=== PATIENT | female | born 1970 | race Caucasian/White ===

== ENCOUNTER → 2017-12-15 | Outpatient (CLI) | payer OTHER ==
[2014-07-07 13:38] VITALS: BMI 30.1
[~2017-12-15] MED LIST: ASPI-702 PO; Acetaminophen PO; BISM525O75 PO; Benzocaine 60 ML TP; DOCU240C67 PO; GUAI-545 PO; Ibuprofen PO; Lanolin TP; TUCKS TOP
--- NOTE | 2017-12-15 15:09 | RADIOLOGY IMAGING REPORT ---
FACILITY: [facility] - [place] PATIENT NAME: MILVIA JASON : [id number] MR: [id number] V: [id number] EXAM DATE: ORDERING PHYSICIAN: LUZ MARIA DIOR TECHNOLOGIST: Giovana Rick PROCEDURE:BILATERAL DIGITAL SCREENING MAMMOGRAM WITH CAD ASSISTED INTERPRETATION & 3D TOMOSYNTHESIS COMPARISON:Prior mammograms 11/05/16, 11/02/15, 08/02/12. INDICATIONS:SCREENING FINDINGS: Moderately dense fibroglandular tissue is seen throughout the breasts. The parenchymal pattern has remained stable allowing for difference in mammographic technique & patient positioning. There is no evidence of malignant appearing mass, malignant appearing calcifications or other secondary sign of malignancy in either breast. DIAGNOSTIC CATEGORY 1--NEGATIVE. RECOMMENDATIONS: ROUTINE MAMMOGRAM AND CLINICAL EVALUATION. IMPRESSION: BIRADS 1: Negative. No significant abnormality is seen. Dictated by: Erendira Weinstein M.D. on 12/15/2017 at 14:55 Transcribed by: PAMELA on 12/15/2017 at 15:02 Approved by: Erendira Weinstein M.D. on 12/15/2017 at 15:07 [facility]
== END ==
LOC: MAMO 07:08
PROVIDERS: ATTEND Obstetrics & Gynecology
DX: Z12.31 Encounter for screening mammogram for malignant neoplasm of breast (principal)
CPT/HCPCS: 77063; 77067